=== PATIENT | female | born 1980 | race Caucasian/White ===

== ENCOUNTER 2023-06-17 15:19 | Emergency (ER) | payer BC, SELFPAY ==
[2023-06-17 15:22] VITALS: BP 165/109
--- NOTE | 2023-06-17 15:35 | ED.MUSCINJ ---
HPI-Injury
<Jillian Reina PA-C - Last Filed: 06/17/23 18:25>
General
Chief Complaint: Soft Tissue Injury
Source: patient
Exam Limitations: none
Time Seen by Provider: 06/17/23 15:32
Nursing documentation reviewed up to this point in time: agreed with
Travel History
Have you had any contact with someone who has COVID-19?: No
Do you have any symptoms of coronavirus? Fever > 100 degrees, chills, cough, shortness of breath, sore throat, loss of taste or smell, muscle aches, or headache?: No
History of Present Illness-Injury
Initial Injury comments:
This is a 42 y/o female with a PMH of HTN, asthma, GERD who is presenting to the ER today with left-sided foot pain and swelling x 1 week. Patient was not doing anything in particular when the pain started, she denies any history of trauma/falls.
Patient states that the pain is worse with movement, and the pain resolves with rest. Patient states that with ambulation, the pain is a 7-8 out of 10. Patient denies a history of osteo/rheumatoid arthritis. Patient does have a history of plantar
fasciitis and sees a residency director and will occasionally get injections in her foot for this. Patient states that this feels different than her plantar fasciitis. Patient denies any inversion or eversion injury to the ankle. Patient denies any
rashes, fevers or chills. Patient states that she works out around twice a week, however during her job she sits for many hours at a time. Patient has not tried any acetaminophen, ibuprofen, or ice for the pain/swelling.
Past History
<Jillian Reina PA-C - Last Filed: 06/17/23 18:25>
Past History
ED Past Medical History: Asthma and HTN
ED Past Surgical History: None
Patient has exhibited threatening behavior?: No
Social History
Tobacco: Former smoker
Alcohol: Occasional
Personal:
Living: with family
Review of Systems
<EVANGELINA Menon Last Filed: 06/17/23 18:25>
Review of Systems
All Other Systems: ROS reviewed and negative except as documented in HPI and ROS
Phy Exam
<EVANGELINA Menon Last Filed: 06/17/23 18:25>
Physical Exam
Physical Exam:
General: Patient is well-appearing in no acute distress.
Skin: Warm and dry, no rashes or lesions.
Head: Normocephalic, atraumatic
Cardiac: Regular rate
Peripheral vascular: 2+ dorsalis pedis pulses bilaterally
Pulm: Normal respiratory effort
Musculoskeletal: Patient has tenderness palpation of the medial surface of the left foot, below the medial malleolus extending into the plantar surface of the medial foot. No laxity or pain with varus valgus testing of the left ankle. Negative
anterior drawer testing.
Neuro: AAOx3
Injury Course
<EVANGELINA Menon Last Filed: 06/17/23 18:25>
Orders/Labs/Results
Orders:
Orders
06/17/23 15:27
Foot, Left 3 View [CR Foot - Left Min 3 Views] Urgent
Comment:
Reason For Exam: pain
<Sravan Stiles DO - Last Filed: 06/17/23 16:33>
Orders/Labs/Results
Orders:
Orders
06/17/23 15:27
Foot, Left 3 View [CR Foot - Left Min 3 Views] Urgent
Comment:
Reason For Exam: pain
<EVANGELINA Menon Last Filed: 06/17/23 18:25>
MDM/Problems Addressed
Differential Diagnosis Includes:
ddx include osteoarthritis, rheumatoid arthritis, gout, deltoid ligament ankle sprain, plantar fasciitis
MDM/Problems Addressed:
Foot pain, swelling
Chronic conditions affecting care: HTN, Asthma and Other (GERD, plantar fasciitis)
<Jillian Reina PA-C - Last Filed: 06/17/23 18:25>
*Radiology
Radiology exam reviewed: preliminary read by ED provider (no acute fracture or dislocation)
*Pulse Oximetry
Patient hypoxic: no
*Critical Care Note
Total Time (30-74mins, 75-104mins- exclusive of procedures): Not Applicable
Data Reviewed
Review of Other/Old Records Reveals: Records (Reviewed ER physician documentation from 11/17/2017) and Discharge Summary (No recent hospitalizations)
<Jillian Reina PA-C - Last Filed: 06/17/23 18:25>
Patient Management
Escalation/DeEscalation of care consider admission/obs:
42-year-old female with past medical history of plantars fasciitis presenting to emergency department today with left medial foot pain and swelling x 1 week. She denies any trauma. Her x-ray of her foot was negative for any fracture or
dislocation. I suspect her current symptoms are likely due to either plantar fasciitis versus deltoid ligament sprain. Patient does follow with a residency director, I recommended follow-up with them should her symptoms not resolved. Recommended sole
inserts into her shoes as well as ibuprofen and ice. Patient aware of plan and will follow-up as indicated. Patient stable for discharge
ED Attending Note
<Jillian Reina PA-C - Last Filed: 06/17/23 18:25>
-
Portions of this chart may have been created with voice recognition software.� Occasional wrong word or��sound alike� substitutions may have occurred due to the inherent limitations of voice recognition software.
<Sravan Stiles DO - Last Filed: 06/17/23 16:33>
ED Attending Note
Patient seen and examined by attending physician: Yes
I performed the substantive portion of visit, reviewed & personally made and approve the management plan that is documented in note by myself or HARLEEN.: Yes
ED Attending Note:
I agree with Hope's note
Pain to palpation over medial foot anterior to heel. No erythema or fluctuance
Suspect tendonitis. NSaids, walk as tolerated, podiatry follow up
Discharge Plan
Departure
Patient Disposition: Home (Routine Discharge)
Date of Disposition: 06/17/23
Time of Disposition: 16:35
Patient with high blood pressure during this ER visit?: Yes
Condition: Good
Discharge Problem:
Foot pain, left
Instructions: Foot Sprain (DC), BLOOD PRESSURE
Prescriptions:
No Action
ibuprofen 800 MG tablet
800 mg PO Q4HPRN PRN (Reason: period pain)
amlodipine 5 MG tablet
5 mg PO DAILY
pantoprazole 40 MG tablet,delayed release (DR/EC)
40 mg PO DAILY
multivitamin [Daily Jhonatan] 1 EACH tablet
1 ea PO DAILY
omega-3 fatty acids-fish oil [Fish Oil] 1,000 MG capsule
1 cap PO BID
cholecalciferol (vitamin D3) 5,000 UNIT tablet
5,000 unit PO DAILY
cyclobenzaprine 10 MG tablet
10 mg PO TIDPRN PRN (Reason: muscle spasms/tightness) Qty: 15 0RF
Referrals:
Arjun Elena MD [Family Provider] -
Activity Restrictions/Additional Instructions:
Please make an appointment with your residency director.
Please ice your foot and use ibuprofen for pain control. Weight bear as tolerated.
I recommend placing sole inserts into your shoes.
Please return to the emergency department with any concerns.
Interventions
Interventions:
*Risk Screen - Suicide Last Done: 06/17/23 16:53
*General Assessment Last Done: 06/17/23 16:53
*Neglect/Abuse Screening Last Done: 06/17/23 16:53
ED- Fall Risk Assessment Last Done: 06/17/23 16:53
*ED COVID-19 Vaccine History Last Done: 06/17/23 16:53
*Nursing Disposition Last Done: 06/17/23 16:56
ED-Musculoskeletal Assessment Last Done: 06/17/23 16:53
ED-Skin Assessment Last Done: 06/17/23 16:55
Discharge Date and Time
Discharge Date/Time: 06/17/23 16:56
== END 2023-06-17 16:56 | disposition home or self-care (01) ==
LOC: EMR 15:19
PROVIDERS: EMERGENCY PHYSICIAN Emergency Medicine; FAMILY PHYSICIAN Family Medicine
DX: M79.672 Pain in left foot (principal); I10 Essential (primary) hypertension; J45.909 Unspecified asthma, uncomplicated; K21.9 Gastro-esophageal reflux disease without esophagitis; M72.2 Plantar fascial fibromatosis; Z87.891 Personal history of nicotine dependence
CPT/HCPCS: 99283; 73630

== ENCOUNTER → 2023-07-29 08:02 | Outpatient (REF) | payer BC, SELFPAY | LOC: MRI 08:02 | PROVIDERS: ATTENDING PHYSICIAN Podiatrist Foot Surgery; FAMILY PHYSICIAN Family Medicine | DX: M77.52 Other enthesopathy of left foot and ankle (principal) | CPT/HCPCS: 73718; 73721 ==

== ENCOUNTER 2023-08-28 06:24 | Day surgery (SDC) | payer BC, SELFPAY ==
[2023-08-28 08:20] VITALS: BMI 55.8
[2023-08-28 08:22] VITALS: BP 115/86
[2023-08-28 09:35] VITALS: BP 116/79
[2023-08-28 09:45] VITALS: BP 135/87
[2023-08-28 10:00] VITALS: BP 139/87
== END 2023-08-28 10:12 | disposition home or self-care (01) ==
LOC: GI 06:24
PROVIDERS: ATTENDING PHYSICIAN Internal Medicine Gastroenterology
DX: K21.9 Gastro-esophageal reflux disease without esophagitis (principal); K31.89 Other diseases of stomach and duodenum
CPT/HCPCS: 43239; 88305; 88342

== ENCOUNTER 2025-01-19 15:49 | Emergency (ER) | payer BC, SELFPAY ==
[2025-01-19 15:51] VITALS: BP 162/108
[2025-01-19 17:06] VITALS: BP 157/95; BMI 48.7
--- NOTE | 2025-01-19 17:21 | ED.GENMED ---
ED Provider Triage
<Ulises Vital MD, Resident - Last Filed: 01/19/25 18:39>
-
Patient seen by provider in Triage?: Seen in Triage
History of Present Illness
<Ulises Vital MD, Resident - Last Filed: 01/19/25 18:39>
General
Chief Complaint: Musculo-Skeletal Complaint
Source: patient
Exam Limitations: none
Time Seen by Provider: 01/19/25 16:53
History of Present Illness
History of Present Illness:
44-year-old female with burning dull moderate to severe right ankle pain that started a couple of weeks ago. The pain started on the medial side of her right ankle and then subsided around 2 days ago shortly thereafter there was swelling on the
left side of her ankle. Associated with swelling on lateral portion of right ankle. The pain is aggravated on movement and by placing on shoes. No recent history of new shoe usage, increase in her baseline exercise routine. Not associated with
numbness/tingling/rash/fever. No previous diagnosis of gout, rheumatoid arthritis, lupus, foot injury.
Past History
<Ulises Vital MD, Resident - Last Filed: 01/19/25 18:39>
Past History
ED Past Medical History: Asthma and HTN
ED Past Surgical History: None
Patient has exhibited threatening behavior?: No
Social History
Tobacco: Former smoker
Alcohol: Occasional
Personal:
Living: with family
Review of Systems
<Ulises Vital MD, Resident - Last Filed: 01/19/25 18:39>
Review of Systems
Allergies reviewed?: Yes
All Other Systems: ROS reviewed and negative except as documented in HPI and ROS
Phy Exam
<Ulises Vital MD, Resident - Last Filed: 01/19/25 18:39>
General Physical Exam
General Presentation: well appearing and no apparent distress
General Skin: warm
General Habitus: obese
General Mental: alert
Cardiovascular Exam
Cardiovascular Exam: regular rate/rhythm and no edema
Pulmonary Exam
Pulmonary Exam: lungs clear and no respiratory distress
Neurological Exam
Neurological Exam: alert and oriented x3
Musculoskeletal Exam
Musculoskeletal Exam: other (Inspection of the lateral side of the right ankle shows swelling and mild erythema. No tenderness to palpation of the right ankle, there is limitation in range of movement on plantarflexion, dorsiflexion, inversion,
eversion. Inspection and palpation of the contralateral left ankle is normal.)
Course
<Ulises Vital MD, Resident - Last Filed: 01/19/25 18:39>
Orders/Labs/Results
Orders:
Orders
01/19/25 15:51
Ankle, Right 3 view CR [CR Ankle - Right Min 3 Views *] Urgent
Comment: can't bear weight
Reason For Exam: right ankle pain denies injury
01/19/25 18:06
Crutches-Treatment ONCE
boot [Ortho Boot Right- Treatment] ONCE
Short or tall?: Tall
Vital Signs
Initial and Last Documented VS:
Initial Vital Signs
Temp Pulse Resp BP Pulse Ox
97.9 F 94 20 162/108 99
01/19/25 15:51 01/19/25 15:51 01/19/25 15:51 01/19/25 15:51 01/19/25 15:51
Last Documented Vital Signs
Temp Pulse Resp BP Pulse Ox
97.9 F 86 18 157/95 99
01/19/25 15:51 01/19/25 17:06 01/19/25 17:06 01/19/25 17:06 01/19/25 17:22
<Shala Sarmiento DO - Last Filed: 01/19/25 18:11>
Orders/Labs/Results
Orders:
Orders
01/19/25 15:51
Ankle, Right 3 view CR [CR Ankle - Right Min 3 Views *] Urgent
Comment: can't bear weight
Reason For Exam: right ankle pain denies injury
01/19/25 18:06
Crutches-Treatment ONCE
boot [Ortho Boot Right- Treatment] ONCE
Short or tall?: Tall
Vital Signs
Initial and Last Documented VS:
Initial Vital Signs
Temp Pulse Resp BP Pulse Ox
97.9 F 94 20 162/108 99
01/19/25 15:51 01/19/25 15:51 01/19/25 15:51 01/19/25 15:51 01/19/25 15:51
Last Documented Vital Signs
Temp Pulse Resp BP Pulse Ox
97.9 F 86 18 157/95 99
01/19/25 15:51 01/19/25 17:06 01/19/25 17:06 01/19/25 17:06 01/19/25 17:22
<Ulises Vital MD, Resident - Last Filed: 01/19/25 18:39>
MDM/Problems Addressed
Differential Diagnosis Includes:
Achilles tendinopathy, posterior tibial tendinopathy, overuse injury, rheumatoid arthritis, ankle sprain
MDM/Problems Addressed:
- Xray of the right ankle shows
1. Mild to moderate anterior subluxation of the talus and widening of the tibiotalar joint space suggesting chronic ankle ligamentous injury and ankle instability.
2. 4.4 mm ossific intra-articular body in the lateral tibiotalar joint space.
3. 4 mm chronic avulsion fracture of the medial malleolus.
4. Small calcaneal enthesophytes.
5. Severe diffuse subcutaneous edema.
- Suspect ligamentous injury to right ankle after physical exam shows no pain to tenderness but pain on dorsiflexion, plantar flexion, inversion , and eversion. Recommended a tall ortho boot, crutches, elevate extremity, and no excessive physical
activity for 6-8 weeks. Recommended f/u with ortho within 7 days.
<Ulises Vital MD, Resident - Last Filed: 01/19/25 18:39>
*Pulse Oximetry
SaO2: 99
Oxygen Mode of Delivery: Room air
Patient hypoxic: no
*Critical Care Note
Total Time (30-74mins, 75-104mins- exclusive of procedures): Not Applicable
ED Attending Note
<Ulises Vital MD, Resident - Last Filed: 01/19/25 18:39>
-
Portions of this chart may have been created with voice recognition software.� Occasional wrong word or��sound alike� substitutions may have occurred due to the inherent limitations of voice recognition software.
<Shala Sarmiento DO - Last Filed: 01/19/25 18:11>
ED Attending Note
Patient seen and examined by attending physician: Yes
I performed the substantive portion of visit, reviewed & personally made and approve the management plan that is documented in note by myself or HARLEEN.: Yes
I performed a history and physical exam of patient and discussed management with resident, I reviewed resident's note and agree with documented findings and plan of care.: Yes
ED Attending Note:
44-year-old female presenting to the emergency department with right ankle and foot pain. Patient notes that pain started a few days ago. Denies any known significant injury or trauma. Initially pain was in the medial malleoli region, however 2
days later started to travel to the lateral malleoli. Denies any numbness or tingling. Denies any significant pain at rest, however with inversion eversion, as well as dorsiflexion and plantarflexion as he has pain. Reports history of plantar
fasciitis. Has been able to bear weight. Denies additional acute medical complaints.
On exam patient is resting comfortably, no acute distress. Patient does have swelling to her right lateral malleoli. No significant tenderness to the foot or ankle. Palpable pulses and sensation. No erythema or warmth. Range of motion is
grossly intact, however reproducible pain with inversion, eversion, dorsiflexion, plantarflexion. X-ray obtained prior to my assessment which shows mild to moderate anterior subluxation of the talus and widening of the tibiotalar joint space
suggesting chronic ankle ligamentous injury and ankle instability. No sign of acute fracture. Suspected etiology of patient's pain, ligamentous injury. Will place patient in a tall boot and provide crutches, nonweightbearing until patient follows
up with orthopedics. Advised calling orthopedics tomorrow for appointment. Also advised elevation for swelling. Return precautions discussed and patient verbalized understanding
Discharge Plan
Departure
Patient Disposition: Home (Routine Discharge)
Date of Disposition: 01/19/25
Time of Disposition: 18:23
Patient with high blood pressure during this ER visit?: Yes
Condition: Good
Discharge Problem:
Ankle instability, Disorder of ligament of right ankle
Instructions: How to Use Crutches, Hypertention
Prescriptions:
No Action
ibuprofen 800 MG tablet
800 mg PO Q4HPRN PRN (Reason: period pain)
amlodipine 5 MG tablet
5 mg PO DAILY
pantoprazole 40 MG tablet,delayed release (DR/EC)
40 mg PO DAILY
cholecalciferol (vitamin D3) 5,000 UNIT tablet
5,000 unit PO DAILY
Referrals:
Matias Hernandez MD [Active, Orthopedics]
UNKNOWN - PT DOES,NOT KNOW [Unknown Provider]
Stand Alone Forms: Return to Work
Activity Restrictions/Additional Instructions:
You were seen for right ankle pain associated with swelling. Physical exam showed pain on dorsiflexion, plantar flexion, eversion, and inversion. X-ray shows mild to moderate anterior subluxation of the talus and widening of the tibiotalar joint
space suggesting chronic ankle ligamentous injury and ankle instability. No signs of fracture. Suspect ligamentous injury so ordered tall ortho boot, crutches, nonweightbearing, elevation of the affected extremity and calling Dr. Hernandez,
orthopedics tomorrow for appointment. Return to ED if there is increased swelling, increased pain, inability to bear weight on affected extremity, fever, chills, numbness, weakness, tingling.
Thank you for visiting the Emergency Department at [facility].
1. Please schedule a follow up appointment as directed. Call first thing tomorrow morning to make an appointment.
2. If indicated, please take your medications as instructed and indicated on discharge paperwork.
3. If any of your symptoms do not improve, or persist, or become more severe within 6-12 hours, please return to the emergency department for further care.
4. Please return to the emergency department if you develop a headache, neck pain/stiffness, fever greater than 100.4F, chest pain, shortness of breath, persistent nausea, vomiting, slurred speech, difficulty walking, numbness/tingling, weakness,
signs of infection or any other symptoms that are worrisome to you.
Please call [phone] if you have any questions.
Interventions
Interventions:
*Risk Screen - Suicide Last Done: 01/19/25 15:51
*General Assessment Last Done: 01/19/25 15:51
*Neglect/Abuse Screening Last Done: 01/19/25 15:51
*ED- Fall Risk Assessment Last Done: 01/19/25 17:00
*ED COVID-19 Vaccine History Last Done: 01/19/25 17:00
*ED Influenza Vaccine History Last Done: 01/19/25 17:00
ED-Musculoskeletal Assessment Last Done: 01/19/25 17:00
Discharge Date and Time
Print Language: CROATIAN
== END 2025-01-19 18:20 | disposition home or self-care (01) ==
LOC: EMR 15:49
PROVIDERS: EMERGENCY PHYSICIAN Student in an Organized Health Care Education/Training Program; FAMILY PHYSICIAN Physician Assistant Medical
DX: M25.373 Other instability, unspecified ankle (principal); M25.571 Pain in right ankle and joints of right foot; I10 Essential (primary) hypertension; J45.909 Unspecified asthma, uncomplicated; Z87.891 Personal history of nicotine dependence
CPT/HCPCS: 99283; 73610